=== PATIENT | male | born 1945 | race Caucasian/White ===

== ENCOUNTER → 2018-07-29 | Outpatient (CLI) | payer OTHER ==
[2018-07-29 08:24] LABS: CREATININE 1.1 mg/dL (0.6-1.3)
== END ==
LOC: M.LAB 07:51 → M.CT 09:30 → M.RAD 10:00
PROVIDERS: Family Medicine
DX: F32.9 Major depressive disorder, single episode, unspecified (principal); R13.10 Dysphagia, unspecified; R56.9 Unspecified convulsions

== ENCOUNTER → 2018-08-11 | Outpatient (CLI) | payer OTHER ==
--- NOTE | 2018-08-15 10:16 | EEG ---
[address] [address] EEG STUDY REPORT Name: [facility] Room: [facility]#: [id number] Admission: 08/11/18 Attend Phys: Emerson Ordoñez DO Discharge: Date of : 41 Report #: [id number] THIS REPORT FOR: //name// CC: Emerson Ordoñez DATE OF SERVICE: 08/11/2018 INTERPRETATION: This patient is being evaluated for dementia and possible seizure. Background activity in this patient is up to about 8-9 Hz and 30 microvolts. The patient became drowsy that is associated with bilateral slowing. Photic stimulation was unremarkable. Throughout the record, no active epileptiform activity was noticed. IMPRESSION: This patient's EEG is intermixed with theta range slowing on both sides. That is a nonspecific abnormality, which can occur with encephalopathy, dementia, effect of psychotropic medication. No active epileptiform activity was noticed. The patient's heart rate dropped into 40s. The patient's primary care physician, Dr. Ordoñez, is being paged and we will inform them about this cardiac finding as soon as they call back. <ELECTRONICALLY SIGNED> By: Raj Garrido MD 08/15/18 [id number] Garrido MD /nt
== END ==
LOC: M.CRD 13:53
DX: R93.0 Abnormal findings on diagnostic imaging of skull and head, not elsewhere classified (principal)